=== PATIENT | male | born 2000 | race Caucasian/White ===

== ENCOUNTER 2024-09-09 18:30 | Outpatient (RCR) | payer SELFPAY ==
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
--- NOTE | 2024-07-31 09:23 | HP.PTREVAL ---
Re-Evaluation Intro: Dr. Irvin Osorio MD, It has been my pleasure to treat PRAFUL TORRES over the last 14 visits for R shoulder scope DOS: 06/12/24, RTC repair. Please see the progress note below for an update on the physical therapy plan of care! Subjective Subjective: Pt. reports overall doing much better. No issues with sleeping. Pt. reports being 50% better overall. He still feels weak. Objective Objective/Function: MMT: R shoulder: flexion 19.2, abd 28.5#, ER 19.0# , IR 24.7# L shoulder: flex 26.3#, abd 29.2#, ER 23.7#, IR 29.5# ROM: R shoulder: flexion full, abd full, Functional ER C6 no issues, functional IR L2 no issues Pt. is overall doing well, ready to progress to further strengthening as tolerated. I am pleased with his progress and his able to complete HEP and consistency. Plan Plan Plan: Pt. to follow up with physician tomorrow. I would recommend that he continue with PT working on progressive strengthening. Pt. to call in to schedule after seeing physician. Balance/Gait/Functional tests Balance/Special Test Scores Quick DASH Score: 22.7250 Goals Goals Goal 1:: LTG: Pt. to be I with HEP. Goal Time Frame: 4-6 Weeks Goal Progress: Progressing Goal 2:: STG: Pt. to sleep throughout the night without increase in symptoms. Goal Time Frame: 2 Weeks Goal Progress: Goal Met Goal 3:: STG: Pt. to have full R shoulder PROM. Goal Time Frame: 2 Weeks Goal Progress: Goal Met Goal 4:: LTG: Pt. to have full R shoulder AROM allowing I with all functional activities. Goal Time Frame: 2-4 Weeks Goal Progress: Progressing Goal 5:: LTG: Pt. to have full R shoulder strength without increase in symptoms. Goal Time Frame: 6-8 Weeks Goal Progress: Progressing Anticipated Interventions Anticipated Interventions Patient/Client Instruction: Educate patient on: Condition, Plan of Care, Risk Factors and Benefits of Fitness Program For the Purpose of:: To improve decision making, To facilitate caregiver knowledge, To improve self management, To prevent re-injury, To improve ability to perform tasks related to life management and To improve tolerance to ADL's Therapeutic Exercise to Include: Strength training, Power training, Endurance training, Body mechanics, Postural training, Flexibilty training, Passive ROM, Active ROM and Scapular Strength/Stabilization For the Purpose of:: To decrease pain, To decrease swelling/inflammation, To increase ROM, To improve nutrient delivery to tissue, To increase oxygenation perfusion, To improve muscle performance and motor function and To improve ability to perform ADL's Manual Therapy Techniques to Include: Mobilization and Soft tissue mobilization For the Purpose of:: To decrease pain, To decrease swelling/inflammation, To increase ROM and To improve nutrient delivery to tissue Cryotherapy (ice pack, ice massage): Yes Thermo therapy (hot pack): Yes For the Purpose of:: To decrease pain, To decrease swelling/inflammation and To increase ROM Re-Evaluation Ending Re-evaluation ending: Please do not hesitate to contact me at [phone] by phone or if you have questions or concerns regarding this new plan of care! Sincerely, Marco A Gong DPT
--- NOTE | 2024-09-04 09:50 | HP.PTREVAL ---
Re-Evaluation Intro: Dr. Irvin Oosrio MD, It has been my pleasure to treat PRAFUL TORRES over the last 18 visits for R shoulder scope DOS: 06/12/24, RTC repair. Please see the progress note below for an update on the physical therapy plan of care! Subjective Subjective: Pt. reports being 80-85% better overall. Pt. reports no pain currently. He is looking fwrd to getting back to softball, baseball and pickleball. Pt. to see physician next week. Objective Objective/Function: ROM: great no issues. Sleeping well without pain. MMT: R shoulder: flex 37.2#, abd 32.6# 21.9#, IR 25.4# L shoulder: flex 38.2#, abd 41.1#, ER 25#, IR 27.4# Pt. is overall doing well. His abd and ER is still weaker than I would like. the rest are approaching 90%. I am going to have him come back for next week work on high level strengthening. Then he is going to follow back up with physician on SEP 12. Plan Plan Plan: pt. to be seen x2 next week then follow up with physician to determine best course of action. Balance/Gait/Functional tests Balance/Special Test Scores Quick DASH Score: 6.8175 Goals Goals Goal 1:: LTG: Pt. to be I with HEP. Goal Time Frame: 4-6 Weeks Goal Progress: Progressing Goal 2:: STG: Pt. to sleep throughout the night without increase in symptoms. Goal Time Frame: 2 Weeks Goal Progress: Goal Met Goal 3:: STG: Pt. to have full R shoulder PROM. Goal Time Frame: 2 Weeks Goal Progress: Goal Met Goal 4:: LTG: Pt. to have full R shoulder AROM allowing I with all functional activities. Goal Time Frame: 2-4 Weeks Goal Progress: Progressing Goal 5:: LTG: Pt. to have full R shoulder strength without increase in symptoms. Goal Time Frame: 6-8 Weeks Goal Progress: Progressing Anticipated Interventions Anticipated Interventions Patient/Client Instruction: Educate patient on: Condition, Plan of Care, Risk Factors and Benefits of Fitness Program For the Purpose of:: To improve decision making, To facilitate caregiver knowledge, To improve self management, To prevent re-injury, To improve ability to perform tasks related to life management and To improve tolerance to ADL's Therapeutic Exercise to Include: Strength training, Power training, Endurance training, Body mechanics, Postural training, Flexibilty training, Passive ROM, Active ROM and Scapular Strength/Stabilization For the Purpose of:: To decrease pain, To decrease swelling/inflammation, To increase ROM, To improve nutrient delivery to tissue, To increase oxygenation perfusion, To improve muscle performance and motor function and To improve ability to perform ADL's Manual Therapy Techniques to Include: Mobilization and Soft tissue mobilization For the Purpose of:: To decrease pain, To decrease swelling/inflammation, To increase ROM and To improve nutrient delivery to tissue Cryotherapy (ice pack, ice massage): Yes Thermo therapy (hot pack): Yes For the Purpose of:: To decrease pain, To decrease swelling/inflammation and To increase ROM Re-Evaluation Ending Re-evaluation ending: Please do not hesitate to contact me at [phone] by phone or if you have questions or concerns regarding this new plan of care! Sincerely, Marco A Gong DPT
== END 2024-09-09 19:00 | disposition home or self-care (01) ==
LOC: PT 18:30
PROVIDERS: Referring Provider Orthopaedic Surgery; Visit Provider Orthopaedic Surgery
DX: S46.011D Strain of muscle(s) and tendon(s) of the rotator cuff of right shoulder, subsequent encounter (principal); M25.711 Osteophyte, right shoulder
CPT/HCPCS: 97110; 97140; 97161; 97530